=== PATIENT | female | born 1990 | race Caucasian/White ===

== ENCOUNTER 2017-03-07 08:37 | Emergency (ER) | payer OTHER ==
[2017-03-07 08:48] VITALS: TEMP 98.4; O2SAT 96
[2017-03-07] MEDS ORDERED: IBUPROFEN 600 MG TAB PO ONE (08:55)
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
[2017-03-07 10:22] VITALS: BP 141/80; PULSE 82; RESP 16
== END 2017-03-07 10:19 | disposition home or self-care (01) ==
DX: S39.012A Strain of muscle, fascia and tendon of lower back, initial encounter (principal); F17.200 Nicotine dependence, unspecified, uncomplicated; V49.40XA Driver injured in collision with unspecified motor vehicles in traffic accident, initial encounter; Y92.410 Unspecified street and highway as the place of occurrence of the external cause; Y99.8 Other external cause status; Y93.89 Activity, other specified